=== PATIENT | male | born 1960 | race Caucasian/White ===

== ENCOUNTER → 2017-12-10 | Day surgery (SDC) | payer OTHER ==
[~2017-12-10] MED LIST: ACETAMINOPHEN 1000 MG/100 ML 100 ML IV ONE; BUPIVACAINE/EPINEPHRINE 0.5% PF 30 ML VIAL ONE; GLYCOPYRROLATE 0.2 MG/ML VIAL IV PUSH ONE; KETOROLAC TROMETHAMINE 30 MG/ML (IVP) VIAL IV PUSH ONE; LACTATED RINGER'S 1000 ML INJ 1,000 ML ONE; MIDAZOLAM HCL 2 MG/2 ML VIAL ONE; NEOSTIGMINE METHYLSULFATE 10 MG/10 ML VIAL IV PUSH ONE; ONDANSETRON HCL 4 MG/2 ML VIAL IV PUSH ONE; PROPOFOL 200 MG/20 ML AMP IV ONE; ROCURONIUM INJ 50 MG/5 ML VIAL ONE; ceFAZolin 2 GM PREMIX 50 ML ONE
--- NOTE | 2017-12-10 10:48 | TN ---
cc: Merlin Barrera MD DATE OF SURGERY: 12/10/2017 DATE OF PROCEDURE: 12/10/2017. PREOPERATIVE DIAGNOSIS: Bilateral inguinal hernia, left greater than right, with umbilical hernia. POSTOPERATIVE DIAGNOSES: 1. Left indirect and direct inguinal hernia. 2. Right indirect inguinal hernia. 3. Umbilical hernia. PROCEDURE: 1. Laparoscopic repair of right indirect inguinal hernia. 2. Laparoscopic repair of indirect and direct inguinal hernia, left side. 3. Open repair of umbilical hernia. ANESTHESIA: General. SURGEON: Dr. Barrera INDICATIONS FOR PROCEDURE: This is a pleasant 57-year-old gentleman who had a symptomatic left inguinal hernia. On exam, he had a right inguinal hernia as well and umbilical hernia. Plans were made for above. PROCEDURE. The patient is brought to the operating room, placed on the operating table. After anesthesia, his abdomen is prepped with Betadine. A timeout is done. He is given preoperative antibiotics. We make an incision just below the umbilicus just off the midline to the left. We get into the preperitoneal space. Using the dissecting balloon under videoscopic surveillance, we dissect into the preperitoneal space. Once this was accomplished, we are able to remove the dissecting balloon and placed a balloon trocar. The preperitoneal space is insufflated up to 11 mmHg of pressure. Two of the working ports are placed, a 5 mm above the pubic tubercle and 5 mm in between the 2 previously placed ports. We direct our attention to the left side first. Direct and indirect sac are seen. These were completely reduced. Posterior window is created behind the cord structures. A piece of polypropylene mesh, cut to size 3 x 6 with a slit to accommodate the cord structures is then placed and secured into place with the tacking device, tacking the mesh to the pubic tubercle, Jos's ligament and out laterally, avoiding the cutaneous nerves. A small slit had been cut. A 1 x 3 cm piece of mesh is then placed along the crotch to further buttress this. This is secured to the lateral aspect avoiding the epigastric vessels into Jos's ligament. We then direct our attention to the right side. It is a little bit scarred in from his appendectomy scar but we are able to reduce this completely. He has a fairly sizable indirect defect with fat and lipomatous tissue that is completely removed. We then place a similar piece of mesh, 3 x 6 cut to size with slits to accommodate the cord structures after creating a posterior window. We secure it to the pubic tubercle, Jos's ligament and out laterally, avoiding the epigastric vessels and cutaneous nerves. Tails were then secured to themselves and to the anterior abdominal wall. A 3 x 1 cm piece of mesh is then placed over the crotch of the slit to further buttress this and this is secured to Jos's ligament and out laterally, avoiding the epigastric vessels. We then placed 15 mL of Marcaine in the preperitoneal space for postop pain control. The trocars are removed. We direct our attention to the umbilical hernia. We elevate the skin off the fascia. The preperitoneal space is able to be reduced completely. The fascial defect is then reapproximated in a vertical fashion with an interrupted 0 Ethibond suture, closing the separate 3 sutures as the defect was just a little bit over a 1 cm or 1.5 cm in size. The fascial defect created to get in the preperitoneal space is then reapproximated with the Ethibond as well. The deep layer is closed with a 3-0 Vicryl and the skin is closed with a 4-0 Vicryl at all 3 sites. The patient tolerated the procedure well, had no immediate postoperative complications. Merlin Barrera MD JSATHISH/STEVE , 10:23 AM , 10:48 AM
== END | disposition home or self-care (01) ==
LOC: ESDC 06:39
PROVIDERS: ATTEND Surgery
DX: K40.20 Bilateral inguinal hernia, without obstruction or gangrene, not specified as recurrent (principal); K42.9 Umbilical hernia without obstruction or gangrene
CPT/HCPCS: 00750; 00840; 49585; 49650; C1727; C1781; J0131; J0690; J1885; J2250; J2405; J2710; J3010; J7120